=== PATIENT | female | born 1975 | race Caucasian/White ===

== ENCOUNTER 2021-03-14 05:50 | Day surgery (SDC) | payer MEDICAID, SELFPAY ==
[~2021-03-14] VITALS: Ht 154.9 cm; Wt 65.8 kg
[2021-03-14 06:59] LABS: HCG,QUAL RESULT NEGATIVE (NEGATIVE)
[2021-03-14] MEDS ORDERED: SUGAMMADEX SODIUM 200 MG/2 ML VIAL IV ONE (07:00)
[2021-03-14] MEDS ORDERED: ROCURONIUM BROMIDE 10 MG/ML (ZEMURON) IV ONE (07:00)
[2021-03-14] MEDS ORDERED: MIDAZOLAM HCL 5 MG/5 ML VIAL IVP ONE (07:00)
[2021-03-14] MEDS ORDERED: LIDOCAINE/EPI 1% 1:100000 20 ML VIAL INJ ONE (07:00)
[2021-03-14] MEDS ORDERED: ONDANSETRON HCL 4 MG/2 ML VIAL IVP ONE (07:00)
[2021-03-14] MEDS ORDERED: LR 1,000 ML IV.SOLN IV ONE (07:00)
[2021-03-14] MEDS ORDERED: LIDOCAINE 2%, 20 ML MDV INJ ONE (07:00)
[2021-03-14] MEDS ORDERED: fentaNYL CITRATE 250 MCG/5 ML AMP IV ONE (07:00)
[2021-03-14] MEDS ORDERED: PROPOFOL 200MG/ 20ML VIAL (DIPRIVAN) IV ONE (07:00)
[2021-03-14] MEDS ORDERED: DEXAMETHASONE SOD PHOSPHATE 4 MG/ML VIAL IVP ONE (07:00)
[2021-03-14] MEDS ORDERED: DESFLURANE 15 MIN GAS INH ONE (07:00)
[2021-03-14] MEDS ORDERED: CEFAZOLIN 2 GM IVPB PREMIX 50 ML IV ONE (07:00)
[2021-03-14] MEDS ORDERED: ACETAMINOPHEN I.V. 1000 MG 100 ML IV ONE (07:16)
[2021-03-14] MEDS ORDERED: hydrALAZINE HCL 20 MG/ML VIAL IVP PRN (08:30)
[2021-03-14] MEDS ORDERED: HYDROmorphone 1 MG/ML INJ. CARTRIDGE IVP PRN ×2 (08:30)
[2021-03-14] MEDS ORDERED: MEPERIDINE HCL/PF 25 MG/ML DISP.SYRIN IVP PRN (08:30)
[2021-03-14] MEDS ORDERED: METOCLOPRAMIDE HCL 10 MG/2 ML VIAL IVP PRN (08:30)
[2021-03-14] MEDS ORDERED: LR 1,000 ML IV SCH (08:30)
[2021-03-14] MEDS ORDERED: ALBUTEROL SULFATE 0.083% 2.5 MG/3 ML VIAL.NEB INH PRN (08:30)
[2021-03-14] MEDS ORDERED: ONDANSETRON HCL 4 MG/2 ML VIAL IVP PRN (08:30)
[2021-03-14] MEDS ORDERED: LABETALOL 100 MG/ 20ML VIAL IVP PRN (08:30)
[2021-03-14] MEDS ORDERED: MIDAZOLAM HCL 2 MG/2 ML VIAL (VERSED) IVP PRN (08:30)
[2021-03-14 12:21] VITALS: BP_SYST 138
== END 2021-03-14 12:00 | disposition home or self-care (01) ==
LOC: SDS 05:50 → SMU 05:50 → SDS 12:00
PROVIDERS: ATTEND Otolaryngology
DX: J34.2 Deviated nasal septum (principal); D38.5 Neoplasm of uncertain behavior of other respiratory organs; J30.1 Allergic rhinitis due to pollen; J34.89 Other specified disorders of nose and nasal sinuses; J32.9 Chronic sinusitis, unspecified; E66.9 Obesity, unspecified; J45.20 Mild intermittent asthma, uncomplicated; Z20.822 Contact with and (suspected) exposure to COVID-19; Z79.899 Other long term (current) drug therapy
CPT/HCPCS: 30140; 30520; 31255; 31256; 84703; 88305; 88311; C9399; J0131; J0690; J1100; J2001; J2250; J2405; J2704; J3010; J3465; J7120; U0003; C1726